=== PATIENT | male | born 1960 | race Caucasian/White ===

== ENCOUNTER 2016-12-12 13:11 | Day surgery (SDC) | payer MEDICARE, MEDICAID ==
[2016-12-12 14:34] LABS: BUN/Creatinine Ratio 3.7 (8-20); Calcium 9.8 mg/dL (8.6-10.3); EGFR African American 6.4 (>60); Potassium 4.4 mmol/L (3.5-5.0)
[2016-12-12] MEDS ORDERED: Flumazenil* 0.1 MG/ML 5 ML MDV ONE (15:03)
[2016-12-12] MEDS ORDERED: Naloxone* 0.4 MG/ML 1 ML VIAL ONE (15:03)
[2016-12-12] MEDS ORDERED: fentaNYL* 50 MCG/ML 2 ML VIAL (100 MCG VIAL) ONE ×3 (15:03→16:42)
[2016-12-12] MEDS ORDERED: Midazolam* 1 MG/ML 5 ML VIAL (5 MG) ONE (15:03)
[2016-12-12] MEDS ORDERED: Lidocaine 1% INJ* 10 MG/ML 30 ML SDV ONE (15:04)
[2016-12-12] MEDS ORDERED: Iodixanol* (CONTRAST) 320 MG/ML 100 ML SDV ONE (15:04)
[2016-12-12] MEDS ORDERED: Heparin 2 UNITS/ML IVPREMIX* 1,000 ML IV ONE (15:04)
[2016-12-12] MEDS ORDERED: Heparin(*) 1000 UNIT/ML 10 ML VIAL CATH LAB IV ONE (15:16)
--- NOTE | 2016-12-12 18:38 | RAD ---
CPT II Codes: 6045F Procedure(s) performed: 1. Diagnostic fistulogram of the patient's right radiocephalic fistula. 2. Balloon angioplasty of the central right upper extremity venous outflow. Date of service: December 12, 2016 Indication for procedure: Prolonged bleeding after hemodialysis Comparison: Similar examination dated April 18, 2014 and fistula ultrasound November 25, 2016 Contrast: 40 mL Visipaque 320 Fluoroscopy Time: 12.9 minutes Vessels Accessed: Percutaneous access was obtained with ultrasound guidance in the right forearm fistula in the antegrade direction towards the heart. Catheter angiography, with the catheter tip located within the lumen of the following vessels, was performed at the right forearm fistula, right cephalic vein, right brachial vein and SVC. Anesthesia: Conscious sedation with IV Fentanyl and Versed as well as local 1% lidocaine injected locally at the arteriotomy site. Conscious sedation time: Timeout: 1542 hours Case end: 1655 hours Total conscious sedation time: 1 hour and 13 minutes Additional medications: * The patient received 1 mg of p.o. Ativan prior to the onset of the procedure. Procedure and Imaging findings: Prior to the procedure the risk and benefits were carefully explained and informed consent was obtained from the patient. The hemodialysis fistula was examined to determine strength of palpable thrill, condition of the overlying skin and direction of flow. The patient was appropriately positioned on the table in the angiography suite. The skin overlying and surrounding the hemodialysis fistula was prepped and draped in standard sterile fashion. Sterile precautions were employed including use of cap, mask, gown and sterile gloves. A formal time out was performed and all members of the team and the patient agreed to the patient, procedure and laterality. The fistula was examined with ultrasound and financial services sales representative images were obtained. Under sonographic control the fistula was accessed in the antegrade direction with an 18 gauge micropuncture needle. An image was recorded. Under fluoroscopic control a MyStreamson wire was advanced proximally and the needle was exchange for a 7 Bengali SideArm sheath. Initial fistulogram was performed through the access sheath showing adequate filling through the forearm access site and at least 3 branching veins leaving the fistula including a main brachial vein and a cephalic vein that was bifurcated up to the distal right upper arm before joining. Over the wire a 5-Bengali curved tip sheath was advanced into the brachial vein and contrast venography was performed which demonstrated adequately patent flow. 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 Based on the preliminary intravascular angiographic studies the following interventions were pursued. Balloon angioplasty was performed across the cephalic vein and subclavian vein junction utilizing an 8 mm x 100 mm [place] balloon. The balloon was drawn back and balloon angioplasty was performed at the proximal most portions of the cephalic vein which exhibit mild long segment narrowing. During each inflation the balloon remained inflated for at least 2 minutes to address expected venospasm. Review of the fistulogram from the access sheath show segment of narrowing and a portion of the duplicated right forearm cephalic vein. Utilizing this imaging as a guide, the 8mm by 100 mm [place] balloon was drawn back to this narrowed segment of the forearm cephalic vein and balloon angioplasty was performed. Serial balloon angioplasty was performed to address his several waists that were reluctant to fully open. Subsequent venography showed improved flow through this portion with questionable evidence of venous spasm. There is no dissection recorded. A final venogram through the side arm sheath and the fistula showed brisk flow in the venous outflow. The wire and sheath were removed. Gentle pressure was held at the access site for 15 minutes and no significant bleeding or hematoma formation occurred. The site was dressed with sterile gauze and the patient left the angiography suite in stable condition. SUMMARY OF PROCEDURE, IMAGING FINDINGS AND INTERVENTIONS PERFORMED: 1. Diagnostic studies performed: * Percutaneous access was obtained at the right forearm fistula in the antegrade direction (i.e. towards the heart) with ultrasound guidance. A sonographic image was recorded. * Diagnostic fistulography (necessary to perform the appropriate interventions) was performed with the catheter tip in the right forearm fistula, right brachial vein, right cephalic vein and SVC. * Catheter angiography was performed of the right arm fistula, all outflow veins and the central veins. 2. 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 * Long segment narrowing at the distal right cephalic vein prior to the junction with the subclavian vein. * Long segment narrowing at one of 2 paired right forearm cephalic veins prior to the confluence of the 2 veins into the right upper arm cephalic vein. 3. Surgical interventions performed: * Balloon angioplasty was performed at the above-mentioned stenoses utilizing an 8 mm x 100 mm mustang balloon. During each inflation the balloon remained inflated for minimum of 2 minutes to address venospasm. 4. Interpretation of interventions performed: * Postprocedural fistulography and venography demonstrated improved bolus flow in the fistula. There appeared to be persistent venous spasm at the treated right forearm duplicated cephalic vein but there is no active extravasation. Plan: Hemodialysis may commence immediately.
--- NOTE | 2016-12-12 19:15 | PN ---
Progress Note - Progress Note Date of Service: 12/12/16 SOAP: Subjective: No pain. No nausea. Objective: 103/66, 80, 93% (RA) NAD, AAO x 3 RUE forearm fistula with palpable thrill Dressing is C/D/I, no bleeding or hematoma Right hand is neuromuscular grossly intact Assessment: 56 YOM s/p right forearm fistulogram and venoplasty. Plan: 1. D/C to home. 2. Dialysis can commence immediately.
[2016-12-12 19:20] VITALS: BP 103/66
== END 2016-12-12 19:20 | disposition home or self-care (01) ==
LOC: CHICATH 13:11
PROVIDERS: ATTEND Radiology Diagnostic Radiology
DX: T82.858A Stenosis of other vascular prosthetic devices, implants and grafts, initial encounter (principal); I87.1 Compression of vein; N18.6 End stage renal disease; Z99.2 Dependence on renal dialysis
CPT/HCPCS: 36415; 36901; 36902; 36907; 76937; 80048; 99156; 99157; C1725; C1887; J1644; J2001; J2250; J2310; J3010

== ENCOUNTER 2023-05-23 09:06 | Inpatient (IN) ==
[2023-05-23 11:11] LABS: Activated Partial Thrombo Time 31.3 seconds (26.0-38.0); INR 1.17 (0.83-1.13); Mixing Study Protime 13.3 seconds (9.5-12.8)
[2023-05-23 11:42] LABS: Ferritin 477.6 ng/mL (24-336)
[2023-05-23 12:05] LABS: PT/Normal Control 12.2 seconds (9.5-12.8)
[2023-05-23 12:06] LABS: PTT/Normal Control 29.5 seconds (26.0-38.0)
[2023-05-23 13:32] LABS: PT/After 1 Hour Incubation 12.3 seconds (9.5-12.8); PTT/After 1 HR Incubation 29.7 seconds (26.0-38.0)
[2023-05-23 18:30] LABS: ABS Lymphocytes 0.7 10^3/uL (1.0-4.8); ABS Monocytes 0.4 10^3/uL (0.0-1.1); ABS Neutrophils 2.9 10^3/uL (1.5-7.6); Eosinophil % 1.1 %; Hematocrit 24.6 % (38-53); Lymphocyte % 16.7 %; Mean Corpuscular Hemoglobin 33.4 pg (27-33); Mean Corpuscular Hgb Conc 32.5 g/dL (31-36); Mean Corpuscular Volume 102.8 fL (80-97); Mean Platelet Volume 7.3 fL (7.5-11.2); Nucleated Red Blood Cells % 0.1 %/100WBC (0.0-0.8); Platelet Count 125 10^3/uL (150-450); Red Blood Count 2.39 10^6/uL (4.06-5.63)
[2023-05-23] MEDS: Enoxaparin 100 MG/ML SYR SUBCUT SCH (19:49)
[2023-05-24 07:06] LABS: ABS Lymphocytes 0.6 10^3/uL (1.0-4.8); ABS Monocytes 0.3 10^3/uL (0.0-1.1); ABS Neutrophils 2.5 10^3/uL (1.5-7.6); Eosinophil % 0.8 %; Hemoglobin 7.1 g/dL (13.2-16.3); Lymphocyte % 17.7 %; Mean Corpuscular Hemoglobin 33.5 pg (27-33); Mean Corpuscular Hgb Conc 32.4 g/dL (31-36); Mean Corpuscular Volume 103.2 fL (80-97); Mean Platelet Volume 7.3 fL (7.5-11.2); Nucleated Red Blood Cells % 0.1 %/100WBC (0.0-0.8); Platelet Count 112 10^3/uL (150-450); Red Blood Count 2.13 10^6/uL (4.06-5.63); White Blood Count 3.4 10^3/uL (3.6-10.2)
[2023-05-24 07:21] LABS: Albumin 3.2 g/dL (3.2-5.2); Albumin/Globulin Ratio 1.2 (1-3); Calcium 7.8 mg/dL (8.6-10.3); Creatinine, Serum 5.43 mg/dL (0.67-1.17); Globulin 2.7 g/dL (2-4); Magnesium 2.2 mg/dL (1.9-2.7); Phosphorus 4.1 mg/dL (2.5-5.0); Potassium 4.2 mmol/L (3.5-5.0); Total Bilirubin 1.5 mg/dL (0.2-1.0); Total Protein 5.9 g/dL (6.4-8.9); eGFR CKD-EPI 11.2 (>60)
[2023-05-24] MEDS: FERRIC CITRATE 210 MG PO SCH (08:11)
[2023-05-24] MEDS: TESTOSTERONE GEL 25 MG (NF) IN 2.5 GM SIZE PACKET TOPICAL SCH (08:11)
[2023-05-24 08:26] LABS: C Reactive Protein 88.71 mg/L (<8.01)
[2023-05-24 08:40] LABS: Folate 5.3 ng/mL (5.90-24.80)
[2023-05-24] MEDS ORDERED: NS 0.9% 1000 ml BAG 100 ML IV PRN (09:02)
[2023-05-24] MEDS ORDERED: NS 0.9% 1000 ml BAG 200 ML IV PRN (09:02)
[2023-05-24 09:03] LABS: Hematocrit 25.9 % (38-53); Hemoglobin 8.4 g/dL (13.2-16.3)
[2023-05-24 11:01] LABS: Hepatitis B Surface Antigen Nonreactive (Nonreactive)
[2023-05-24 11:18] LABS: Hepatitis B Surface Ab Not Immune (Immune)
[2023-05-24] MEDS: Iodixanol (CONTRAST) 320 MG/ML 100 ML SDV IV ONE (15:59)
[2023-05-25] MEDS: Albumin Human 25% 25 GM/100 ML BTL IV PRN (10:20)
[2023-05-25 11:59] LABS: DRVVT Screen Ratio 1.11 ratio (<1.20); LAC APTT 28 sec (25 - 37); LAC INR 1.2 (0.9-1.1); Prothrombin Time(LAC) 13.5 sec (9.4 - 12.5)
[2023-05-25 12:27] LABS: Beta 2 Glycoprotein IgG <9.4 SGU
[2023-05-25 13:11] LABS: ABS Lymphocytes 0.5 10^3/uL (1.0-4.8); ABS Monocytes 0.2 10^3/uL (0.0-1.1); ABS Nucleated RBC 0.01 10^3/ul; Eosinophil % 1.7 %; Hematocrit 20.8 % (38-53); Hemoglobin 6.9 g/dL (13.2-16.3); Lymphocyte % 18.1 %; Mean Corpuscular Hemoglobin 33.5 pg (27-33); Mean Corpuscular Volume 101.5 fL (80-97); Mean Platelet Volume 7.2 fL (7.5-11.2); Nucleated Red Blood Cells % 0.3 %/100WBC (0.0-0.8); Platelet Count 105 10^3/uL (150-450); Red Blood Count 2.05 10^6/uL (4.06-5.63); Red Cell Distribution Width 21.7 % (12-17); White Blood Count 2.8 10^3/uL (3.6-10.2)
[2023-05-25 15:44] LABS: Phospholipid Ab IgG < 9.4 GPL; Phospholipid Ab IgM, S < 9.4 MPL
[2023-05-25 16:43] LABS: Hematocrit 20.4 % (38-53); Hemoglobin 6.6 g/dL (13.2-16.3)
[2023-05-25 16:54] LABS: Immature Retic Fraction 0.36
[2023-05-25 17:02] LABS: Corrected Retic Count 1.8 % (0.5-2.2); Hematocrit for Retic CNT 20.8 % (38-53); RBC Retic Count 2.05 10^6/ul (4.06-5.63)
[2023-05-25] MEDS: Phytonadione Oral Solution 5 MG/25 ML UDC PO ONE (18:32)
[2023-05-26 09:53] LABS: Hematocrit 23.2 % (38-53); Hemoglobin 7.5 g/dL (13.2-16.3); Mean Corpuscular Hgb Conc 32.5 g/dL (31-36); Mean Corpuscular Volume 98.5 fL (80-97); Red Blood Count 2.35 10^6/uL (4.06-5.63); Red Cell Distribution Width 24.7 % (12-17)
[2023-05-26 10:03] LABS: Calcium 8.6 mg/dL (8.6-10.3); Creatinine, Serum 4.95 mg/dL (0.67-1.17); Magnesium 1.9 mg/dL (1.9-2.7); Potassium 4.9 mmol/L (3.5-5.0); eGFR CKD-EPI 12.6 (>60)
[2023-05-26 10:21] LABS: ABS Lymphocytes 0.6 10^3/uL (1.0-4.8); ABS Monocytes 0.2 10^3/uL (0.0-1.1); ABS Neutrophils 2.1 10^3/uL (1.5-7.6); Eosinophil % 1.4 %; Lymphocyte % 21.4 %; Mean Platelet Volume 7.2 fL (7.5-11.2); Platelet Count 94 10^3/uL (150-450)
[2023-05-26] MEDS: fentaNYL 100 mcg/2 ml 50 MCG/ML VIAL ONE (12:37)
[2023-05-26] MEDS: Heparin 2 UNITS/ML 1000 mls 1,000 ML IV ONE (12:37)
[2023-05-26] MEDS: Iron Sucrose 200 MG in NS 0.9% 100 ml BAG 100 ML IVPB ONE (13:57)
[2023-05-26] MEDS: Phytonadione Oral Solution 5 MG/25 ML UDC PO SCH (13:57)
[2023-05-26 20:24] LABS: Direct Bilirubin 0.4 mg/dL (0.03-0.18); Indirect Bilirubin 1.5 mg/dL (0.3-1.0); Total Bilirubin 1.9 mg/dL (0.2-1.0)
[2023-05-27 06:26] LABS: Calcium 8.9 mg/dL (8.6-10.3); Creatinine, Serum 6.3 mg/dL (0.67-1.17); Potassium 5.2 mmol/L (3.5-5.0); eGFR CKD-EPI 9.4 (>60)
[2023-05-27 07:00] LABS: Hemoglobin 7.5 g/dL (13.2-16.3); Mean Corpuscular Hemoglobin 32.1 pg (27-33); Mean Corpuscular Hgb Conc 32.5 g/dL (31-36); Red Blood Count 2.32 10^6/uL (4.06-5.63); Red Cell Distribution Width 23.8 % (12-17); White Blood Count 3.4 10^3/uL (3.6-10.2)
[2023-05-27 07:33] LABS: ABS Lymphocytes 0.7 10^3/uL (1.0-4.8); ABS Monocytes 0.2 10^3/uL (0.0-1.1); ABS Neutrophils 2.4 10^3/uL (1.5-7.6); Anisocytosis 2+; Basophilic Stippling 1+; Eosinophil % 1.3 %; Lymphocyte % 19.3 %; Macrocytosis 1+; Mean Platelet Volume 7.2 fL (7.5-11.2); Microcytosis 1+; Platelet Count 86 10^3/uL (150-450)
[2023-05-28 06:46] LABS: Creatinine, Serum 4.23 mg/dL (0.67-1.17); Potassium 4.8 mmol/L (3.5-5.0); eGFR CKD-EPI 15.2 (>60)
[2023-05-28 07:24] LABS: ABS Lymphocytes 0.6 10^3/uL (1.0-4.8); ABS Monocytes 0.3 10^3/uL (0.0-1.1); ABS Neutrophils 2.1 10^3/uL (1.5-7.6); Anisocytosis 2+; Basophilic Stippling 1+; Eosinophil % 1.3 %; Hematocrit 23.7 % (38-53); Hemoglobin 7.7 g/dL (13.2-16.3); Lymphocyte % 19.3 %; Macrocytosis 1+; Mean Corpuscular Hemoglobin 32.3 pg (27-33); Mean Corpuscular Hgb Conc 32.6 g/dL (31-36); Mean Corpuscular Volume 99.3 fL (80-97); Mean Platelet Volume 7.5 fL (7.5-11.2); Microcytosis 1+; Nucleated Red Blood Cells % 0.1 %/100WBC (0.0-0.8); Platelet Count 89 10^3/uL (150-450); Red Blood Count 2.39 10^6/uL (4.06-5.63); Red Cell Distribution Width 23.3 % (12-17); White Blood Count 3.1 10^3/uL (3.6-10.2)
[2023-05-28] MEDS: KCL 20 MEQ/100 ML IVPREMIX 20 MEQ/100 ML BAG IV ONE (09:15)
[2023-05-28 09:34] VITALS: BP 108/62
[2023-05-28 15:34] LABS: HIT ELISA < 0.050 OD (<0.400); Heparin PF4 Antibody Interp Negative (Negative)
[2023-05-29 09:24] LABS: Coagulation Factor V Assay 77
[2023-05-29 09:28] LABS: Coagulation Factor VII Assay 77
[2023-05-29 12:24] LABS: Coagulation Factor VII Assay 75 % (65 - 180)
[2023-05-29 13:43] LABS: Coagulation F VIII Activity 384 % (55 - 200); von Willebrand Factor Activity 245 % (55 - 200)
== END 2023-05-28 13:03 | disposition home or self-care (01) | DRG 299 ==
LOC: MED 09:06 → CHOA 09:06
PROVIDERS: ADMIT Internal Medicine Hematology & Oncology; ATTEND Internal Medicine